=== PATIENT | female | born 1985 | race Caucasian/White ===

== ENCOUNTER 2017-03-26 10:48 | Observation (INO) | payer OTHER ==
[2014-12-22 09:41] VITALS: O2SAT 94
[2017-03-26 11:07] VITALS: TEMP 98.4
== END 2017-03-26 12:40 | disposition home or self-care (01) | DRG 951 ==
LOC: OB 10:48
PROVIDERS: ADMIT Family Medicine; ATTEND Family Medicine
DX: Z34.93 Encounter for supervision of normal pregnancy, unspecified, third trimester (principal); Z3A.35 35 weeks gestation of pregnancy
CPT/HCPCS: 59025; 84112; 87081

== ENCOUNTER 2017-04-25 17:07 | Inpatient (IN) | payer OTHER ==
[~2017-04-25 17:07] MED LIST: CARBOPROST 250 MCG/ML SOL IM PRN; FENTANYL 100MCG/2ML SOL IV PRN; LACTATED RINGERS 1,000 ML IV PRN; MEPIVACAINE HCL 1% MPF 30 ML SOL INFIL PRN; METHYLERGONOVINE MALEATE 0.2 MG/ML SOL IM PRN; OXYTOCIN 10000 MU/ML SOL IM PRN; SODIUM CHLORIDE 0.9% FLUSH 10 ML SOL IV PRN
[2017-04-25] MEDS: SODIUM CHLORIDE 0.9% FLUSH 10 ML SOL IV SCH (18:03)
[2017-04-25] MEDS ORDERED: BENZOCAINE/MENTHOL 1 SPR TOP PRN (20:17)
[2017-04-25] MEDS ORDERED: FLEET ENEMA PR PRN (20:17)
[2017-04-25] MEDS ORDERED: TEMAZEPAM 15MG 15 MG CAP PO PRN (20:17)
[2017-04-25] MEDS ORDERED: WITCH HAZEL 1 EA PAD TOP PRN (20:17)
[2017-04-25] MEDS ORDERED: APAP/HYDROCODONE 325/5 TAB PO PRN (20:17)
[2017-04-25] MEDS ORDERED: METHYLERGONOVINE MALEATE 0.2 MG TAB PO PRN (20:17)
[2017-04-25] MEDS ORDERED: BISACODYL 10 MG SUP PR PRN (20:17)
[2017-04-25] MEDS: IBUPROFEN 600 MG TAB PO PRN (20:31)
[2017-04-26] MEDS: IBUPROFEN 600 MG TAB PO PRN ×4 (03:08→22:48)
[2017-04-26] MEDS: DOCUSATE SODIUM 100 MG SGL PO SCH ×3 (08:03→20:44)
[2017-04-26 10:21] VITALS: RESP 18
[2017-04-26] MEDS: SODIUM CHLORIDE 0.9% FLUSH 10 ML SOL IV SCH (10:48)
[2017-04-26 12:34] LABS: ABO A
[2017-04-26 12:35] LABS: RH TYPE Negative
[2017-04-26 20:49] VITALS: O2SAT 96
[2017-04-27 04:33] VITALS: BP 106/68; PULSE 70; TEMP 97.5
[2017-04-27] MEDS: IBUPROFEN 600 MG TAB PO PRN (06:48)
[2017-04-27] MEDS: DOCUSATE SODIUM 100 MG SGL PO SCH (09:08)
== END 2017-04-27 10:45 | disposition home or self-care (01) | DRG 775 ==
LOC: OB 17:07 → OBSVTOIN 17:07
PROVIDERS: ADMIT Family Medicine; ATTEND Family Medicine
PROC: 10E0XZZ Delivery of Products of Conception, External Approach (ICD-10-PCS; principal; 2017-04-25)
DX: O26.893 Other specified pregnancy related conditions, third trimester (principal); Z37.0 Single live birth; Z67.11 Type A blood, Rh negative; Z3A.39 39 weeks gestation of pregnancy
CPT/HCPCS: 36415; 59025; 85018; 86900; 86901; J0670; J2590

== ENCOUNTER 2019-02-04 07:07 | Inpatient (IN) | payer OTHER ==
[2019-02-04] MEDS ORDERED: TERBUTALINE SULFATE 1 MG/ML SOL SC PRN (07:39)
[2019-02-04] MEDS ORDERED: LACTATED RINGERS 1,000 ML IV SCH (07:45)
[2019-02-04] MEDS ORDERED: OXYTOCIN 10000 MU/ML 20,000 MU in LACTATED RINGERS 1,000 ML IV SCH (07:45)
[2019-02-04] MEDS ORDERED: FENTANYL 100MCG/2ML SOL IV PRN (07:52)
[2019-02-04] MEDS ORDERED: SODIUM CHLORIDE 0.9% FLUSH 10 ML SOL IV PRN (07:52)
[2019-02-04] MEDS ORDERED: MEPIVACAINE HCL 1% MPF 30 ML/VIAL SOL INFIL PRN (07:52)
[2019-02-04] MEDS ORDERED: OXYTOCIN 10000 MU/ML SOL IM PRN (07:52)
[2019-02-04] MEDS ORDERED: CARBOPROST 250 MCG/ML SOL IM PRN (07:52)
[2019-02-04] MEDS ORDERED: METHYLERGONOVINE MALEATE 0.2 MG/ML SOL IM PRN (07:52)
[2019-02-04] MEDS ORDERED: LACTATED RINGERS 1,000 ML IV PRN (07:52)
[2019-02-04] MEDS ORDERED: OXYTOCIN 10000 MU/ML SOL ONE (08:00)
[2019-02-04] MEDS: SODIUM CHLORIDE 0.9% FLUSH 10 ML SOL IV SCH ×2 (08:14→18:26)
[2019-02-04] MEDS ORDERED: METHYLERGONOVINE MALEATE 0.2 MG TAB PO PRN (17:15)
[2019-02-04] MEDS ORDERED: APAP/HYDROCODONE 1 EACH TABLET PO PRN (17:15)
[2019-02-04] MEDS ORDERED: TEMAZEPAM 15MG 15 MG CAP PO PRN (17:15)
[2019-02-04] MEDS ORDERED: FLEET ENEMA PR PRN (17:15)
[2019-02-04] MEDS ORDERED: BENZOCAINE/MENTHOL 1 SPR TOP PRN (17:15)
[2019-02-04] MEDS ORDERED: BISACODYL 10 MG SUP PR PRN (17:15)
[2019-02-04] MEDS ORDERED: WITCH HAZEL 1 EA PAD TOP PRN (17:15)
[2019-02-04] MEDS: IBUPROFEN 600 MG TAB PO PRN (18:23)
[2019-02-04] MEDS: DOCUSATE SODIUM 100 MG SGL PO SCH (21:16)
[2019-02-05] MEDS: IBUPROFEN 600 MG TAB PO PRN ×4 (02:38→21:59)
[2019-02-05] MEDS: SODIUM CHLORIDE 0.9% FLUSH 10 ML SOL IV SCH ×2 (02:40→09:43)
[2019-02-05] MEDS: DOCUSATE SODIUM 100 MG SGL PO SCH ×2 (08:33→20:02)
[2019-02-05 15:05] LABS: ABO A
[2019-02-05 15:07] LABS: RH TYPE Negative
[2019-02-06 01:05] VITALS: PULSE 86
[2019-02-06 07:53] VITALS: BP 115/73; RESP 16; TEMP 98.4; O2SAT 96
[2019-02-06] MEDS: DOCUSATE SODIUM 100 MG SGL PO SCH (08:01)
[2019-02-06] MEDS: IBUPROFEN 600 MG TAB PO PRN (08:01)
== END 2019-02-06 10:10 | disposition home or self-care (01) | DRG 807 ==
LOC: OBSVTOIN 07:07 → OB 07:07
PROVIDERS: ADMIT Family Medicine; ATTEND Family Medicine
PROC: 10E0XZZ Delivery of Products of Conception, External Approach (ICD-10-PCS; principal; 2019-02-04)
PROC: 0KQM0ZZ Repair Perineum Muscle, Open Approach (ICD-10-PCS; 2019-02-04)
PROC: 3E033VJ Introduction of Other Hormone into Peripheral Vein, Percutaneous Approach (ICD-10-PCS; 2019-02-04)
PROC: 10907ZC Drainage of Amniotic Fluid, Therapeutic from Products of Conception, Via Natural or Artificial Opening (ICD-10-PCS; 2019-02-04)
PROC: 0W8NXZZ Division of Female Perineum, External Approach (ICD-10-PCS; 2019-02-04)
DX: O80 Encounter for full-term uncomplicated delivery (principal); Z37.0 Single live birth; Z3A.41 41 weeks gestation of pregnancy
CPT/HCPCS: 36415; 85018; 86900; 86901; J0670; J2590; A9270-GY